=== PATIENT | female | born 1965 | race Caucasian/White ===

== ENCOUNTER 2023-01-30 17:27 | Inpatient (IN) | payer OTHER ==
[2023-01-30] MEDS ORDERED: SODIUM CHLORIDE 0.9% 1000 ML INFUS.BAG IV ONE (17:44)
[2023-01-30] MEDS ORDERED: ACETAMINOPHEN 1000 MG/100 ML BAG IVPB ONE (17:45)
[2023-01-30] MEDS ORDERED: ONDANSETRON 4 MG/2 ML VIAL IVPUSH ONE (17:45)
[2023-01-30] MEDS ORDERED: ACETAMINOPHEN INJECTION 100 ML IVPB ONE (17:51)
[2023-01-30] MEDS ORDERED: ONDANSETRON 4 MG/2 ML VIAL ONE (17:51)
[2023-01-30] MEDS ORDERED: LACTATED RINGERS SOLUTION 1000 ML INFUS.BAG IV ONE (18:00)
[2023-01-30 18:16] LABS: HEMATOCRIT 37.6 % (32.4-45.2); HEMOGLOBIN 13.4 G/dL (10.7-15.3); MCH 34.7 pg (25.7-33.7); MCHC 35.7 g/dl (32.0-36.0); MEAN CELL VOLUME 97.2 fl (80-96); MEAN PLT VOLUME 8.6 fl (7.5-11.1); PLATELET COUNT 186.6 10^3/uL (134-434); RBC 3.87 10^6/uL (3.60-5.2); RDW 13.4 % (11.6-15.6); WHITE BLOOD COUNT 14.3 10^3/uL (4.0-10.8)
[2023-01-30 18:21] LABS: INR 1.35 (0.83-1.09); PROTHROMBIN TIME (PATIENT) 15.6 SEC (9.7-13.0)
[2023-01-30 18:23] LABS: ACTIVATED PTT 33.3 SECONDS (25.2-36.5)
[2023-01-30 18:30] LABS: ALBUMIN 3.4 g/dl (3.4-5.0); BILIRUBIN,TOTAL 0.7 mg/dl (0.2-1); CALCIUM 8.4 mg/dl (8.5-10); CREATININE 0.9 mg/dl (0.55-1.3); TOT PROT 7.7 g/dl (6.4-8.2)
[2023-01-30 18:32] LABS: EPITHELIAL CELLS FEW /hpf
[2023-01-30 19:24] LABS: VENOUS BASE EXCESS -1.7 mmol/L (-2-2); VENOUS O2 SATURATION 60.5 % (70-80); VENOUS PH 7.429 (7.310-7.410)
[2023-01-30] MEDS ORDERED: AZITHROMYCIN IVPB 500 MG in DEXTROSE 5%-WATER - 250 ML IVPB ONE (19:58)
[2023-01-30] MEDS ORDERED: CEFTRIAXONE 1,000 MG in DEXTROSE 5%-WATER - 50 ML IVPB ONE (19:58)
[2023-01-30] MEDS ORDERED: AZITHROMYCIN 500 MG VIAL IVPB ONE (20:01)
[2023-01-30] MEDS ORDERED: cefTRIAXone SODIUM 1 GM VIAL ONE ×2 (20:01→20:02)
[2023-01-30 20:02] LABS: PHOSPHOROUS 2.5 mg/dl (2.5-4.9)
[2023-01-30 20:40] LABS: PLATELET ESTIMATE ADEQUATE
[2023-01-30] MEDS ORDERED: DOCUSATE SODIUM 100 MG CAPSULE (FP) PO PRN (21:39)
[2023-01-30] MEDS ORDERED: DEXTROSE 5%-NORMAL SALINE 1,000 ML IV SCH (21:45)
[2023-01-30] MEDS ORDERED: ACETAMINOPHEN 500 MG TABLET (FP) PO ONE (22:30)
[2023-01-30] MEDS ORDERED: ACETAMINOPHEN 500 MG TABLET (FP) ONE (22:37)
[2023-01-30 23:32] VITALS: BMI 35.6
[2023-01-31] MEDS ORDERED: TRIMETHOBENZAMIDE HCL 200MG/2ML INJ IM PRN (05:49)
[2023-01-31] MEDS: ACETAMINOPHEN 1000 MG/100 ML BAG IVPB PRN ×4 (06:48→18:55)
[2023-01-31 07:44] LABS: CALCIUM 7.9 mg/dl (8.5-10); CREATININE 0.8 mg/dl (0.55-1.3)
[2023-01-31] MEDS: ALBUTEROL SO4 2.5/IPRATROPIUM 0.5 INH SOL 3 ML VIAL.NEB. NEB SCH ×3 (08:58→20:10)
[2023-01-31] MEDS: SODIUM CHLORIDE 1,000 ML IV SCH (08:59)
[2023-01-31] MEDS: ENOXAPARIN NA (PORCINE) 40 MG/0.4 ML DISP.SYRIN SQ SCH (09:04)
[2023-01-31 11:14] LABS: HEMATOCRIT 32.2 % (32.4-45.2); HEMOGLOBIN 11.2 GM/dL (10.7-15.3); MCH 33.4 pg (25.7-33.7); MCHC 34.7 g/dl (32.0-36.0); MEAN CELL VOLUME 96.2 fl (80-96); MEAN PLT VOLUME 9.5 fl (7.5-11.1); PLATELET COUNT 184 10^3/uL (134-434); RBC 3.35 M/mm3 (3.60-5.2); WHITE BLOOD COUNT 11.5 K/mm3 (4.0-10.0)
[2023-01-31 12:10] LABS: ANISOCYTOSIS 0; HELMET CELLS 0; HOWELL-JOLLY BODIES 0; MACROCYTOSIS 0; OVALOCYTE 0; ROULEAU 0; SICKELED CELLS 0; TARGET CELLS 0; TEAR DROP CELLS 0; TOXIC GRANULATION 0
[2023-01-31] MEDS: ONDANSETRON 4 MG/2 ML VIAL IVPUSH PRN ×3 (12:42→18:54)
[2023-01-31] MEDS: CEFTRIAXONE 1 GM in DEXTROSE 5%-WATER - 50 ML IVPB SCH (13:09)
[2023-01-31] MEDS: AZITHROMYCIN IVPB 500 MG/250 ML BAG IVPB SCH (13:09)
[2023-01-31] MEDS ORDERED: VANCOMYCIN 1 GM in D5W (PRE-DOCKED) 1,000 MG/250 ML IVPB ONE (19:35)
[2023-02-01] MEDS ORDERED: ACETAMINOPHEN 325 MG TABLET (FP) PO PRN (00:01)
[2023-02-01] MEDS: ONDANSETRON 4 MG/2 ML VIAL IVPUSH PRN (02:03)
[2023-02-01] MEDS ORDERED: ACETAMINOPHEN 1000 MG/100 ML BAG IVPB ONE (02:53)
[2023-02-01] MEDS: ALBUTEROL SO4 2.5/IPRATROPIUM 0.5 INH SOL 3 ML VIAL.NEB. NEB SCH ×4 (03:22→21:03)
[2023-02-01] MEDS ORDERED: VANCOMYCIN 1 GM in D5W (PRE-DOCKED) 1,000 MG/250 ML IVPB ONE (07:35)
[2023-02-01] MEDS: SODIUM CHLORIDE 1,000 ML IV SCH (08:29)
[2023-02-01 09:24] LABS: ALBUMIN 2.7 g/dl (3.4-5.0); BILIRUBIN,TOTAL 0.3 mg/dl (0.2-1); CALCIUM 8.1 mg/dl (8.5-10); CREATININE 0.8 mg/dl (0.55-1.3); PHOSPHOROUS 2.6 mg/dl (2.5-4.9); TOT PROT 6.2 g/dl (6.4-8.2)
[2023-02-01] MEDS: CEFTRIAXONE 1 GM in DEXTROSE 5%-WATER - 50 ML IVPB SCH (10:16)
[2023-02-01] MEDS: ENOXAPARIN NA (PORCINE) 40 MG/0.4 ML DISP.SYRIN SQ SCH (10:16)
[2023-02-01] MEDS: PROCHLORPERAZINE INJECTION 10 MG/2 ML VIAL IVPB PRN ×3 (10:16→22:22)
[2023-02-01] MEDS: AZITHROMYCIN IVPB 500 MG/250 ML BAG IVPB SCH (10:17)
[2023-02-01 11:25] LABS: HEMOGLOBIN 10.6 GM/dL (10.7-15.3); MCHC 34.3 g/dl (32.0-36.0); MEAN CELL VOLUME 96.1 fl (80-96); MEAN PLT VOLUME 9.6 fl (7.5-11.1); PLATELET COUNT 196 10^3/uL (134-434); RBC 3.23 M/mm3 (3.60-5.2); RDW 13.5 % (11.6-15.6); WHITE BLOOD COUNT 11.2 K/mm3 (4.0-10.0)
[2023-02-01 12:04] LABS: ANISOCYTOSIS 0; MACROCYTOSIS 0
[2023-02-01] MEDS: ACETAMINOPHEN 1000 MG/100 ML BAG IVPB PRN ×2 (17:22→22:20)
[2023-02-02] MEDS: ALBUTEROL SO4 2.5/IPRATROPIUM 0.5 INH SOL 3 ML VIAL.NEB. NEB SCH ×4 (05:57→20:08)
[2023-02-02] MEDS: ACETAMINOPHEN 1000 MG/100 ML BAG IVPB PRN ×3 (08:00→20:08)
[2023-02-02] MEDS: SODIUM CHLORIDE 1,000 ML IV SCH (08:30)
[2023-02-02] MEDS: ENOXAPARIN NA (PORCINE) 40 MG/0.4 ML DISP.SYRIN SQ SCH (10:34)
[2023-02-02] MEDS: LACTOBACILLUS ACIDOPHILUS 1 TABLET PO SCH (10:34)
[2023-02-02] MEDS ORDERED: TRIMETHOBENZAMIDE HCL 200MG/2ML INJ IM PRN (12:01)
[2023-02-02] MEDS ORDERED: PROCHLORPERAZINE INJECTION 10 MG/2 ML VIAL IVPB PRN (13:34)
[2023-02-02] MEDS: DEXTROSE 5%-NORMAL SALINE 1,000 ML IV SCH (23:58)
[2023-02-03] MEDS: ALBUTEROL SO4 2.5/IPRATROPIUM 0.5 INH SOL 3 ML VIAL.NEB. NEB SCH ×5 (02:00→21:16)
[2023-02-03] MEDS: ACETAMINOPHEN 1000 MG/100 ML BAG IVPB PRN (02:45)
[2023-02-03 08:27] LABS: CALCIUM 8.2 mg/dl (8.5-10); CREATININE 0.8 mg/dl (0.55-1.3); MAGNESIUM 1.9 mg/dL (1.8-2.4); PHOSPHOROUS 4.2 mg/dl (2.5-4.9)
[2023-02-03] MEDS ORDERED: MAGNESIUM SULF 50% (8.12 MEQ/2 ML-1 GM VIAL) IVPB ONE (09:15)
[2023-02-03] MEDS: LACTOBACILLUS ACIDOPHILUS 1 TABLET PO SCH (09:44)
[2023-02-03] MEDS: ENOXAPARIN NA (PORCINE) 40 MG/0.4 ML DISP.SYRIN SQ SCH (09:44)
[2023-02-03] MEDS ORDERED: MAGNESIUM 1GM/D5W - 1 GM/100 ML IVPB IVPB ONE (10:00)
[2023-02-03] MEDS: KCL 10 MEQ IVPB 10 MEQ/100 ML INFUS.BAG IVPB SCH ×3 (11:17→14:28)
[2023-02-03 11:34] LABS: HEMATOCRIT 33.6 % (32.4-45.2); HEMOGLOBIN 11.5 GM/dL (10.7-15.3); MCH 32.6 pg (25.7-33.7); MCHC 34.2 g/dl (32.0-36.0); MEAN CELL VOLUME 95.2 fl (80-96); MEAN PLT VOLUME 9.3 fl (7.5-11.1); PLATELET COUNT 237 10^3/uL (134-434); RBC 3.53 M/mm3 (3.60-5.2); RDW 13.1 % (11.6-15.6); WHITE BLOOD COUNT 7.9 K/mm3 (4.0-10.0)
[2023-02-03 11:58] LABS: ANISOCYTOSIS 1+; MACROCYTOSIS 0
[2023-02-03] MEDS ORDERED: POTASSIUM CHLORIDE TABS 20 MEQ TABLET.ER (FP) PO ONE (12:00)
[2023-02-03] MEDS: DEXTROSE 5%-NORMAL SALINE 1,000 ML IV SCH (21:16)
[2023-02-04] MEDS: ALBUTEROL SO4 2.5/IPRATROPIUM 0.5 INH SOL 3 ML VIAL.NEB. NEB SCH ×4 (04:49→20:54)
[2023-02-04 08:48] LABS: CALCIUM 8.6 mg/dl (8.5-10); CREATININE 0.7 mg/dl (0.55-1.3); MAGNESIUM 2.1 mg/dL (1.8-2.4); PHOSPHOROUS 4.2 mg/dl (2.5-4.9)
[2023-02-04] MEDS: LACTOBACILLUS ACIDOPHILUS 1 TABLET PO SCH (09:55)
[2023-02-04] MEDS: ENOXAPARIN NA (PORCINE) 40 MG/0.4 ML DISP.SYRIN SQ SCH (09:55)
[2023-02-04 10:33] LABS: BASO % 0.5 % (0-2.0); EOS % 1.9 % (0-4.5); HEMATOCRIT 35.2 % (32.4-45.2); HEMOGLOBIN 12.3 GM/dL (10.7-15.3); LYMPH % 16.8 % (8-40); MCH 32.5 pg (25.7-33.7); MEAN CELL VOLUME 92.7 fl (80-96); MEAN PLT VOLUME 8.7 fl (7.5-11.1); MONO % 5.7 % (3.8-10.2); NEUT % 75.1 % (42.8-82.8); PLATELET COUNT 292 10^3/uL (134-434); RBC 3.79 M/mm3 (3.60-5.2); RDW 13.3 % (11.6-15.6); WHITE BLOOD COUNT 9.3 K/mm3 (4.0-10.0)
[2023-02-04] MEDS ORDERED: POTASSIUM CHLORIDE TABS 10 MEQ TABLET.ER (FP) PO ONE (11:30)
[2023-02-04 12:33] LABS: ANISOCYTOSIS 2+; MACROCYTOSIS 2+; OVALOCYTE 2+
[2023-02-04] MEDS ORDERED: guaiFENesin/CODEINE 10 ML UNIT-DOSE CUPS PO PRN (19:25)
[2023-02-04] MEDS: DEXTROSE 5%-NORMAL SALINE 1,000 ML IV SCH (21:32)
[2023-02-05] MEDS: ALBUTEROL SO4 2.5/IPRATROPIUM 0.5 INH SOL 3 ML VIAL.NEB. NEB SCH ×4 (05:40→21:47)
[2023-02-05 08:51] VITALS: RESP 18
[2023-02-05] MEDS: LACTOBACILLUS ACIDOPHILUS 1 TABLET PO SCH (10:02)
[2023-02-05] MEDS: ENOXAPARIN NA (PORCINE) 40 MG/0.4 ML DISP.SYRIN SQ SCH (10:02)
[2023-02-06] MEDS: ALBUTEROL SO4 2.5/IPRATROPIUM 0.5 INH SOL 3 ML VIAL.NEB. NEB SCH ×2 (03:21→08:30)
[2023-02-06 08:25] LABS: ALBUMIN 3.1 g/dl (3.4-5.0); BILIRUBIN,TOTAL 0.4 mg/dl (0.2-1); CALCIUM 8.8 mg/dl (8.5-10); CREATININE 0.8 mg/dl (0.55-1.3); TOT PROT 6.8 g/dl (6.4-8.2)
[2023-02-06] MEDS: ENOXAPARIN NA (PORCINE) 40 MG/0.4 ML DISP.SYRIN SQ SCH (09:22)
[2023-02-06] MEDS: LACTOBACILLUS ACIDOPHILUS 1 TABLET PO SCH (09:23)
[2023-02-06 09:57] VITALS: BP 127/85; PULSE 79; TEMP 97.3
[2023-02-06 14:18] LABS: HEMATOCRIT 35.1 % (32.4-45.2); MCH 32.1 pg (25.7-33.7); MCHC 34.2 g/dl (32.0-36.0); MEAN CELL VOLUME 93.9 fl (80-96); MEAN PLT VOLUME 8.5 fl (7.5-11.1); PLATELET COUNT 384 10^3/uL (134-434); RBC 3.73 M/mm3 (3.60-5.2); RDW 13.3 % (11.6-15.6); WHITE BLOOD COUNT 9.3 K/mm3 (4.0-10.0)
[2023-02-06 15:13] LABS: ANISOCYTOSIS 2+; MACROCYTOSIS 2+
== END 2023-02-06 12:15 | disposition home or self-care (01) | DRG 177 ==
LOC: FER 17:27 → FM/S 18:51 → UNDOADMOB 18:51 → INTOOBSV 18:51 → FM/S 01-31 05:51 → OBSVTOIN 02-01 12:27
PROVIDERS: ADMIT Internal Medicine
DX: A48.1 Legionnaires' disease (principal); J96.01 Acute respiratory failure with hypoxia; I24.8 Other forms of acute ischemic heart disease; E87.1 Hypo-osmolality and hyponatremia; E78.5 Hyperlipidemia, unspecified; E86.0 Dehydration; R19.7 Diarrhea, unspecified; R94.31 Abnormal electrocardiogram [ECG] [EKG]; K21.9 Gastro-esophageal reflux disease without esophagitis; E87.6 Hypokalemia
CPT/HCPCS: 0241U-QW; 36415; 71045-TC-FY; 71046-TC-FY; 71275-TC; 80048; 80053; 81003; 81015; 82803; 83605; 83735; 84100; 84484; 85025; 85027; 85610; 85730; 86850; 86900; 86901; 87040; 87045; 87046; 87070; 87086; 87186; 87209; 87899; 93005; 94640; 99285-25; G0378; Q9967

== ENCOUNTER 2023-02-14 18:11 | Emergency (ER) | payer OTHER ==
[2023-02-14 18:31] VITALS: BP 136/81; PULSE 85; RESP 16; TEMP 97.9; BMI 30.4
== END 2023-02-14 20:59 | disposition home or self-care (01) ==
LOC: FER 18:11
DX: M79.605 Pain in left leg (principal)
CPT/HCPCS: 93971-TC; 99283-25

== ENCOUNTER 2024-03-31 04:33 | Day surgery (SDC) | payer OTHER ==
[2024-03-29 12:55] VITALS: BMI 30.3
[2024-03-31 11:13] VITALS: TEMP 97.8
[2024-03-31 11:26] VITALS: RESP 18
[2024-03-31 11:59] VITALS: BP 123/75; PULSE 77
== END 2024-03-31 12:00 | disposition home or self-care (01) ==
LOC: JASU-ENDO 04:33
PROVIDERS: ATTEND Internal Medicine Gastroenterology
PROC: 0DBP8ZX Excision of Rectum, Via Natural or Artificial Opening Endoscopic, Diagnostic (ICD-10-PCS; 2024-03-31)
PROC: 0DBM8ZX Excision of Descending Colon, Via Natural or Artificial Opening Endoscopic, Diagnostic (ICD-10-PCS; principal; 2024-03-31 10:00)
DX: Z12.11 Encounter for screening for malignant neoplasm of colon (principal); D12.8 Benign neoplasm of rectum; K63.5 Polyp of colon; K64.8 Other hemorrhoids; Z86.010 Personal history of colon polyps
CPT/HCPCS: 88305-TC